=== PATIENT | female | born 1975 | race African-American/Black ===

== ENCOUNTER 2017-10-29 00:41 | Emergency (ER) | payer OTHER ==
--- NOTE | 2017-10-29 01:14 | PDOC ---
History of Present Illness - General History Source: Patient Exam Limitations: No Limitations - History of Present Illness Initial Comments: 10/29/17 06:21 Blessing (seen) Patient is a 42 year old female with a significant past medical history of Mitral Valve prolapse, Heart Murmur and Anemia who presents to the ED with complaints of chest pain that began x1 month ago. Patient reports experiencing gradual chest pain that began 1 month ago, but states it began to increase in intensity x5 days ago, prompting her to call her PCP who advised she come into the ED for further evaluation. She reports chest pain is increased with deep inspiration, stating that chest pain episodes last 30 seconds in duration, that occur multiple days per day. Denies nausea, vomiting. Denies trauma to affected area. Denies contact with sick individuals, out of state travelling. Denies fevers, chills. Denies any other symptoms. Allergies: [place] Social history: Lives with FamHx: Father CHF, Grandfather: CHF. Surgical history: Appendectomy s/p 1998. PMD: Dr. Bryon Ayala. <Haris Vaughn - Last Filed: 10/29/17 06:21> <Vickie Kumar - Last Filed: 10/30/17 04:59> - General Stated Complaint: CHEST PAIN Time Seen by Provider: 10/29/17 00:59 Past History <Haris Vaughn - Last Filed: 10/29/17 06:21> - Suicide/Smoking/Psychosocial Hx Smoking History: Never smoked Hx Alcohol Use: Yes (occasional on social occasions) Drug/Substance Use Hx: No <Vickie Kumar - Last Filed: 10/30/17 04:59> - Past Medical History Allergies/Adverse Reactions: Allergies Allergy/AdvReac Type Severity Reaction Status Date / Time orange Allergy Mild Verified 10/29/17 01:21 Home Medications: Ambulatory Orders NK [No Known Home Medication] 10/29/17 Review of Systems - Review of Systems Able to Perform ROS?: Yes Comments:: 10/29/17 06:21 GENERAL/CONSTITUTIONAL: No fever or chills. No weakness. HEAD, EYES, EARS, NOSE AND THROAT: No change in vision. No ear pain or discharge. No sore throat. CARDIOVASCULAR: +Chest pain. No shortness of breath. RESPIRATORY: No cough, wheezing, or hemoptysis. GASTROINTESTINAL: No nausea, vomiting, diarrhea or constipation. GENITOURINARY: No dysuria, frequency, or change in urination. MUSCULOSKELETAL: No joint or muscle swelling or pain. No neck or back pain. SKIN: No rash NEUROLOGIC: No headache, vertigo, loss of consciousness, or change in strength/ sensation. ENDOCRINE: No increased thirst. No abnormal weight change. HEMATOLOGIC/LYMPHATIC: No anemia, easy bleeding, or history of blood clots. ALLERGIC/IMMUNOLOGIC: No hives or skin allergy. <Haris Vaughn - Last Filed: 10/29/17 06:21> *Physical Exam - Vital Signs Last Vital Signs Temp Pulse Resp BP Pulse Ox 98.9 F 89 16 115/68 96 10/29/17 01:15 10/29/17 01:15 10/29/17 01:15 10/29/17 01:15 10/29/17 01:15 - Physical Exam Comments: 10/29/17 06:21 GENERAL: Awake, alert, and fully oriented, in no acute distress HEAD: No signs of trauma EYES: PERRLA, EOMI, sclera anicteric, conjunctiva clear ENT: Auricles normal inspection, hearing grossly normal, nares patent, oropharynx clear without exudates. Moist mucosa NECK: Normal ROM, supple, no lymphadenopathy, JVD, or masses LUNGS: Breath sounds equal, clear to auscultation bilaterally. No wheezes, and no crackles HEART: Regular rate and rhythm, normal S1 and S2, no murmurs, rubs or gallops ABDOMEN: Soft, nontender, normoactive bowel sounds. No guarding, no rebound. No masses EXTREMITIES: Normal range of motion, no edema. No clubbing or cyanosis. No cords, erythema, or tenderness NEUROLOGICAL: Cranial nerves II through XII grossly intact. Normal speech, normal gait SKIN: Warm, Dry, normal turgor, no rashes or lesions noted. <Haris Vaughn - Last Filed: 10/29/17 06:21> Heart Score/ECG Review - ECG Intrepretation Comment:: 10/29/17 02:35 Completed @1:00:39 Poor data quality, interpretation may be adversely affected Normal sinus rhythm Normal ECG Vent. rate 65 bpm NV interval 132 ms QRS duration 76 ms <Haris Vaughn - Last Filed: 10/29/17 06:21> ED Treatment Course - LABORATORY CBC & Chemistry Diagram: 10/29/17 02:18 10/29/17 02:18 <Haris Vaughn - Last Filed: 10/29/17 06:21> - LABORATORY CBC & Chemistry Diagram: 10/29/17 02:18 10/29/17 02:18 <Vickie Kumar - Last Filed: 10/30/17 04:59> Medical Decision Making - Medical Decision Making 10/30/17 04:45 Pt comes with atypical chest pain. 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 Pt can follow outpatient. <Vickie Kumar - Last Filed: 10/30/17 04:59> *DC/Admit/Observation/Transfer - Attestations Scribe Attestion: 10/29/17 06:22 Documentation prepared by Haris Vaughn, acting as medical accountant for Vickie Kumar MD/DO. <Haris Vaughn - Last Filed: 10/29/17 06:21> - Discharge Dispostion Decision to Admit order: No <Vickie Kumar - Last Filed: 10/30/17 04:59> Diagnosis at time of Disposition: Atypical chest pain - Discharge Dispostion Disposition: HOME Condition at time of disposition: Stable - Referrals Referrals: Bryon Ayala MD [Primary Care Provider] - - Patient Instructions Printed Discharge Instructions: DI for Atypical Chest Pain - Post Discharge Activity
[2017-10-29 01:19] VITALS: BP 115/68; PULSE 89; TEMP 98.9; BMI 17.9
[2017-10-29 02:34] LABS: HEMATOCRIT 27.4 % (32.4-45.2); HEMOGLOBIN 8.7 GM/dL (10.7-15.3); MCH 20.9 pg (25.7-33.7); MCHC 31.6 g/dl (32.0-36.0); MEAN PLT VOLUME 8.1 fl (7.5-11.1); PLATELET COUNT 356 K/MM3 (134-434); RBC 4.15 M/mm3 (3.60-5.2); RDW 17.8 % (11.6-15.6); WHITE BLOOD COUNT 6.4 K/mm3 (4.0-10.0)
[2017-10-29 02:37] LABS: ADD RBC MORPHOLOGY YES
[2017-10-29 02:45] LABS: INR 1.08 (0.82-1.09); PROTHROMBIN TIME (PATIENT) 12.2 SEC (9.7-13.0)
[2017-10-29 02:58] LABS: ALBUMIN 3.6 g/dl (3.4-5.0); ANION GAP 5 (8-16); BLOOD UREA NITROGEN 14 mg/dL (7-18); CALCIUM 8.6 mg/dL (8.5-10.1); CHLORIDE 111 mmol/L (98-107); CO2 28 mmol/L (21-32); CREATININE 0.7 mg/dL (0.55-1.02); GLUCOSE,RANDOM 95 mg/dL (74-106); SGPT/ALT 18 U/L (12-78); SODIUM 144 mmol/L (136-145)
[2017-10-29 02:59] LABS: ALK PHOS 57 U/L (45-117); BILIRUBIN,TOTAL 0.4 mg/dL (0.2-1.0); TOT PROT 6.9 g/dl (6.4-8.2)
[2017-10-29 03:11] LABS: POTASSIUM 4.1 mmol/L (3.5-5.1); SGOT/AST 19 U/L (15-37)
--- NOTE | 2017-11-01 00:38 | EKG ---
Test Reason : Blood Pressure : / mmHG Vent. Rate : 065 BPM Atrial Rate : 065 BPM P-R Int : 132 ms QRS Dur : 076 ms QT Int : 404 ms P-R-T Axes : 009 071 038 degrees QTc Int : 420 ms NORMAL SINUS RHYTHM NORMAL ECG NO PREVIOUS ECGS AVAILABLE Confirmed by GUDELIA LAWSON MD ([id number]) on 11/01/2017 12:37:57 AM Referred By: Confirmed By:GUDELIA LAWSON MD
== END 2017-10-29 05:49 | disposition home or self-care (01) ==
LOC: JER 00:41
DX: R07.89 Other chest pain (principal); R01.0 Benign and innocent cardiac murmurs; I34.1 Nonrheumatic mitral (valve) prolapse; Z86.2 Personal history of diseases of the blood and blood-forming organs and certain disorders involving the immune mechanism
CPT/HCPCS: 36415; 71046-TC-FY; 80053; 84703; 85025; 85379; 85610; 93005; 93010; 99283-25